=== PATIENT | male | born 1935 | race Caucasian/White ===

== ENCOUNTER 2016-02-28 15:36 | Outpatient (RCR) | payer MEDICARE ==
[~2016-02-28] VITALS: Ht 188 cm; Wt 121.6 kg
[2016-02-28] MEDS ORDERED: ENOXAPARIN 150 MG/ML (LOVENOX) SYR SC ONE (16:00)
[2016-02-29] MEDS ORDERED: ENOXAPARIN 150 MG/ML (LOVENOX) SYR SC SCH (09:00)
[2016-02-29 16:14] VITALS: BP 138/80
== END 2016-05-28 | disposition home or self-care (01) ==
LOC: EUOP 02-29 16:09
PROVIDERS: ATTEND Family Medicine
DX: I82.621 Acute embolism and thrombosis of deep veins of right upper extremity (principal)
CPT/HCPCS: 96372; J1650

== ENCOUNTER → 2016-08-25 | Outpatient (CLI) | payer MEDICARE ==
[~2016-08-25] MED LIST: AC325T PO; ASCO500T6 PO; ATN25T PO; CHOL100061 PO; CLOP75TA3 PO; DOXA1TAB2 PO; DOXA2TAB PO; FRSM10B60 GT; FURO40SO2 PO; FURO40TA4; LOVA20TA2 PO; MULT-301 PO; NTR.4SL SL; OMEG1CAP PO; POTA10CA2
[2016-08-25 10:46] LABS: ALBUMIN 4.3 g/dL (3.4-5.0); ANION GAP 16.5 MEQ/L (3-15); CALCULATED IONIZED CALCIUM 4.1 mg/dL (3.8-4.6); TOTAL PROTEIN 7.5 g/dL (6.4-8.5)
== END ==
LOC: LAB 10:12
PROVIDERS: ATTEND Internal Medicine Cardiovascular Disease
DX: Z51.81 Encounter for therapeutic drug level monitoring (principal); Z79.899 Other long term (current) drug therapy
CPT/HCPCS: 36415; 80053; 80061